=== PATIENT | male | born 1970 | race African-American/Black ===

== ENCOUNTER 2023-08-05 02:51 | Emergency (ER) | payer OTHER ==
[2023-08-05 02:58] VITALS: BP 115/68; PULSE 61; RESP 17; TEMP 97.9; BMI 29.4
[2023-08-05] MEDS ORDERED: IBUPROFEN 600 MG TABLET (FP) PO ONE (03:23)
[2023-08-05] MEDS ORDERED: diazePAM 5 MG TABLET ONE (03:23)
[2023-08-05] MEDS ORDERED: LIDOCAINE 5% TOPICAL PATCH ONE (03:24)
[2023-08-05] MEDS: LIDOCAINE 5% TOPICAL PATCH TP ONE (03:32)
[2023-08-05] MEDS: diazePAM 5 MG TABLET PO ONE (03:32)
[2023-08-05] MEDS: IBUPROFEN 600 MG TABLET (FP) PO ONE (03:32)
[2023-08-05] MEDS ORDERED: LIDOCAINE PATCH REMOVAL MC SCH (22:00)
== END 2023-08-05 06:45 | disposition home or self-care (01) ==
LOC: FER 02:51
DX: M62.830 Muscle spasm of back (principal)
CPT/HCPCS: 72128-TC; 72131-TC; 99284-25